=== PATIENT | male | born 1955 | race Caucasian/White ===

== ENCOUNTER → 2020-03-18 10:16 | Outpatient (BNVA) | payer OTHER, SELFPAY | PROVIDERS: PCP Internal Medicine; Referring Provider Internal Medicine; Visit Provider Internal Medicine Cardiovascular Disease | DX: I47.1 Supraventricular tachycardia (principal) | CPT/HCPCS: 99213 ==

== ENCOUNTER 2020-08-14 05:55 | Outpatient (REF) | payer OTHER, SELFPAY ==
[2020-08-14 06:58] LABS: MANUAL DIFF FLAG NO
[2020-08-14 07:06] LABS: Basophils Percent Auto 0.5 % (0-2); Eosinophils Absolute Auto 0.1 X10*3/uL (0.0-0.4); Eosinophils Percent Auto 1.5 % (0-4); Hematocrit 47.8 % (42-52); Hemoglobin 15.5 g/dl (14.0-18.0); Imm Gran Abs Auto 0.01 X10*3/uL (0.00-0.03); Imm Gran Pct Auto 0.2 % (0.0-0.4); Lymphocytes Percent Auto 34.2 % (20-40); Mean Corpuscular HGB Conc 32.4 g/dl (31.0-36.0); Mean Corpuscular Hemoglobin 28.8 pg (27.0-33.0); Mean Corpuscular Volume 88.8 fL (80-98); Mean Platelet Volume 9.6 fL (9.4-12.4); Monocytes Absolute Auto 0.7 X10*3/uL (0.1-1.2); Monocytes Percent Auto 11.7 % (2-11); Neutrophils Absolute Auto 3.1 X10*3/uL (2.0-8.3); Neutrophils Percent Auto 51.9 % (45-73); Platelet Count 248 X10*3/uL (160-400); Red Blood Count 5.38 X10*6/uL (4.60-5.80); Red Cell Distribution Width 12.4 % (11.0-16.0); White Blood Count 5.9 X10*3/uL (4.8-10.8)
[2020-08-14 07:37] LABS: Alanine Aminotransferase 17 U/L (0-40); Albumin Level 4.5 g/dL (3.5-5.0); Alkaline Phosphatase 84 U/L (39-117); Anion Gap 12 (12-20); Aspartate Amino Transferase 22 U/L (5-37); Blood Urea Nitrogen 15 mg/dL (9-16); Calcium 9.3 mg/dL (8.4-10.2); Carbon Dioxide 29 mmol/L (22-29); Chloride 100 mmol/L (96-108); Cholesterol 159 mg/dL; Estimated Glomerular Filt Rate > 60; Glucose Fasting 102 mg/dL (60-99); HDL Cholesterol 43 mg/dL; LDL Cholesterol Calculated 102 mg/dl; Potassium 4.2 mmol/L (3.3-5.1); Sodium 137 mmol/L (135-145); Total Protein 7.1 g/dL (6.5-8.0); Triglycerides 71 mg/dL
[2020-08-14 08:01] LABS: Prostate Specific Antigen Scr 1.09 ng/mL (<0.05-4.0); Thyroid Stimulating Hormone 1.67 uIU/mL (0.32-4.0)
[2020-08-15 07:16] LABS: Herpes Simplex Type 2 IgG <0.90 index
== END 2020-08-14 05:56 | disposition home or self-care (01) ==
LOC: HO.LAB 05:55
PROVIDERS: PCP Internal Medicine; Visit Provider Internal Medicine
DX: Z00.00 Encounter for general adult medical examination without abnormal findings (principal); E11.9 Type 2 diabetes mellitus without complications; R35.1 Nocturia; E03.9 Hypothyroidism, unspecified; Z20.2 Contact with and (suspected) exposure to infections with a predominantly sexual mode of transmission
CPT/HCPCS: 36415; 80053; 80061; 84153; 84443; 85025; 86695; 86696

== ENCOUNTER 2020-12-27 09:05 | Outpatient (REF) | payer OTHER, SELFPAY ==
--- NOTE | ~2020-12-27 | XR_ITS ---
EXAMINATION: XR KNEE, RIGHT CLINICAL INFORMATION: Pain COMPARISON: None TECHNIQUE: Four views of the right knee. FINDINGS: Bones and soft tissues are normal. No fracture or joint effusion. Alignment is anatomic. Joint spaces are well maintained. No abnormal soft tissue calcification. XR/XR knee RT 4V IMPRESSION: Normal right knee.
== END 2020-12-27 09:06 | disposition home or self-care (01) ==
LOC: HO.XRAY 09:05
PROVIDERS: PCP Internal Medicine; Visit Provider Internal Medicine
DX: M25.561 Pain in right knee (principal)
CPT/HCPCS: 73564

== ENCOUNTER → 2021-01-01 08:49 | Outpatient (BNVA) | payer OTHER, SELFPAY | PROVIDERS: Visit Provider Orthopaedic Surgery | DX: S83.241A Other tear of medial meniscus, current injury, right knee, initial encounter (principal) | CPT/HCPCS: 99202 ==

== ENCOUNTER → 2021-01-08 13:55 | Outpatient (BNVA) | payer OTHER, SELFPAY | PROVIDERS: PCP Internal Medicine; Visit Provider Internal Medicine Cardiovascular Disease ==

== ENCOUNTER 2021-01-16 07:45 | Day surgery (SDC) | payer OTHER, SELFPAY ==
[2021-01-10 09:32] VITALS: BMI 25.7
--- NOTE | 2021-01-15 08:10 | P.CONAN_ITS ---
Documented by User: Mally Connolly 01/15/21 08:11 HPI - Anesthesia Eval Consult details Narrative: 65yo M for Right Knee Arthroscopy Cardiac cleared at low risk [facility] Active Problems Active Problems: All Active Problems (Updated 01/08/21 @ 14:13 by Chao Epps MD) SVT (supraventricular tachycardia) (Acute) Physical exam (Acute) Knee pain (Acute) Tear of medial meniscus of right knee (Acute) Preop cardiovascular exam (Acute) Hyperlipidemia (Acute) Past Medical History Medical History GERD (gastroesophageal reflux disease) Hyperlipidemia Patellofemoral pain syndrome Seasonal allergies SVT (supraventricular tachycardia) Family History Family History Father No problems noted. Mother No problems noted. 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 Meds Allergies Allergy/AdvReac Type Severity Reaction Status Date / Time No Known Allergies Allergy Verified 01/16/21 07:56 [No Known Allergies*] Home Medications Medication Instructions Recorded Confirmed Last Taken Type fluticasone propionate 50 INTRANASAL 03/12/20 12/27/20 Unknown History mcg/actuation nasal spray,suspension Exam Exam Date and Time: January 15, 2021 0810 Height,Weight and Vital Signs: Height 5 ft 10 in Weight 81.193 kg Assessment and Plan Assessment Anesthesia Assessment: Chart Reviewed Documented by User: Yakov Guzman MD 01/16/21 08:43 [facility] Past Medical History Medical History GERD (gastroesophageal reflux disease) Hyperlipidemia Patellofemoral pain syndrome Seasonal allergies SVT (supraventricular tachycardia) Family History Family History Father No problems noted. Mother No problems noted. 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 Meds Allergies Allergy/AdvReac Type Severity Reaction Status Date / Time No Known Allergies Allergy Verified 01/16/21 07:56 [No Known Allergies*] Home Medications Medication Instructions Recorded Confirmed Last Taken Type fluticasone propionate 50 INTRANASAL 03/12/20 12/27/20 Unknown History mcg/actuation nasal spray,suspension Exam Airway Mallampati Class: III TM Dist: >3cm Neck ROM: Full Loose/Missing/Broken Teeth: No Heart: RRR Assessment and Plan Assessment Anesthesia Assessment: Anesthesia Plan Discussed and Chart Reviewed Final Anesthetic Review Family History of Problems with Anesthesia: No History of Problems with Anesthesia: No NPO: Yes ASA Class: II Final Preanesthetic Review: No Changes in Pt Med Stat, Meds/Allgs Chart Reviewed, Consent Obtained/Reviewed and Anes Risks/Benef Reviewed Patient Risk: Intermediate Procedure Risk: Low Anesthetic Plan Anesthetic Plan: GA Disposition: Standard PACU
[2021-01-16] VITALS (7 sets, daily range): BP systolic 137–149; BP diastolic 76–87; PULSE 63–78; RESP 14–16; TEMP 36.1–36.4; O2SAT 96–99
--- NOTE | 2021-01-16 07:30 | MHC.SHP ---
Pre-Procedural Eval Section A Date of Service: 01/16/21 The patient is an INPATIENT: No Changes since office visit: No Cold of Flu in the past 2 weeks, No New Medical Problems, No Changes in Medication and No Patient answered all questions The History & Physical has been completed within 30 days and I have reviewed it.: Yes Section B Chief Complaint: right meniscus tear Allergies: Allergies Allergy/AdvReac Type Severity Reaction Status Date / Time No Known Allergies Allergy Verified 01/08/21 13:56 [No Known Allergies*] Plan I have reviewed the history and physical and performed a pertinent physical examination on my patient. No changes have occurred unless specified.
[2021-01-16] MEDS: Lactated Ringers 1,000 ML 100 ML IVCONT (08:33)
--- NOTE | 2021-01-16 10:02 | P.OP_ITS ---
Operative Note Operative Note Date of Service: 01/16/21 Narrative: ARTHROSCOPIC SURGERY NOTE SURGEON: Dr Fabricio Woody) Instrum CLINICAL NURSING MANAGER: Catina ORTIZ PREOP DIAGNOSIS: Medial meniscal tear right knee POSTOP DIAGNOSIS: Same with grade 3 injury medial femoral condyle right knee OPERATIVE PROCEDURE: Arthroscopic partial medial meniscectomy right knee CLINICAL NOTE: This gentleman is at ongoing problems with pain discomfort involving his right knee. he had failed non operative management. His investigations confirmed medial meniscal tear and therefore after explaining the risks benefits and alternatives and answering all his questions it was mutually agreed upon to carry out the following procedure MOTION: Full range of motion STABILITY: Cruciate and collateral ligaments intact OPERATIVE DETAILS PREPARATION: GA, STANDARD TECHNIQUE, tourniquet E to 300 mm of mercury for 12 minutes SURGICAL TIME-OUT: Patient identified; procedure confirmed; site confirmed. Medical and allergy history reviewed. No preoperative antibiotics. No DVT prophylaxis. All other items discussed and agreed upon. INCISIONS: Superolateral, inferolateral, inferomedial stab incisions SYNOVIUM: Normal SYNOVIAL FLUID: Clear MEDIAL COMPARTMENT: There was complex tearing of the posterior horn of the medial meniscus. This was resected using a combination of handheld cutters and power shaver to stable meniscus. The medial femoral condyle had an area of grade 3 injury with loose articular cartilage. This was debrided. The tibial articular surface had grade 2 wear. INTERCONDYLAR NOTCH: The ACL visualized palpated and intact. PCL palpated intact LATERAL COMPARTMENT: The lateral meniscus, tibial and femoral articular surfaces, and popliteus tendon all stable and intact. ANTERIOR COMPARTMENT: Medial and lateral gutters clear. Suprapatellar pouch clear. Grade 2 softening of the medial and lateral facet of the patella. Femoral sulcus was intact CLOSURE: 30 cc of 0.25% Marcaine with epinephrine injected in the knee. Steri- Strips and sterile dressing then applied. RECOMMENDATIONS: 1)Restore motion strength 2)Resume activities as tolerated 3)Discharge today with prescription for analgesic 4)Follow up in the office in 10-14 days
[2021-01-16] MEDS: Ketorolac Tromethamine 15 MG/ML VIAL IVPUSH (10:32)
[2021-01-16] MEDS: Acetaminophen 325 MG TABLET 650 MG PO (10:32)
[2021-01-16] MEDS: oxyCODONE HCl Immed Release 5 MG TABLET PO (10:33)
== END 2021-01-16 11:30 | disposition home or self-care (01) ==
PROVIDERS: PCP Internal Medicine; Visit Provider Orthopaedic Surgery
PROC: (CPT 29870; principal; 2021-01-16 09:30)
DX: S83.231A Complex tear of medial meniscus, current injury, right knee, initial encounter (principal); M22.2X1 Patellofemoral disorders, right knee; I47.1 Supraventricular tachycardia; J30.2 Other seasonal allergic rhinitis; X58.XXXA Exposure to other specified factors, initial encounter; Y93.9 Activity, unspecified; Y92.9 Unspecified place or not applicable; Y99.8 Other external cause status; Z79.51 Long term (current) use of inhaled steroids
CPT/HCPCS: 29881; J1100; J1885; J2250; J2405; J3010

== ENCOUNTER → 2021-01-28 08:19 | Outpatient (BNVA) | payer OTHER, SELFPAY | PROVIDERS: PCP Internal Medicine; Visit Provider Orthopaedic Surgery | DX: Z48.89 Encounter for other specified surgical aftercare (principal) | CPT/HCPCS: 99212 ==

== ENCOUNTER 2021-08-20 07:17 | Outpatient (REF) | payer MEDICARE, SELFPAY ==
[2021-08-20 07:38] LABS: MANUAL DIFF FLAG NO
[2021-08-20 08:18] LABS: Basophils Percent Auto 0.3 % (0-2); Eosinophils Absolute Auto 0.1 X10*3/uL (0.0-0.4); Eosinophils Percent Auto 1.8 % (0-4); Hemoglobin 15.8 g/dl (14.0-18.0); Imm Gran Abs Auto 0.01 X10*3/uL (0.00-0.03); Imm Gran Pct Auto 0.2 % (0.0-0.4); Lymphocytes Absolute Auto 2.2 X10*3/uL (1.2-4.9); Lymphocytes Percent Auto 36.5 % (20-40); Mean Corpuscular HGB Conc 32.9 g/dl (31.0-36.0); Mean Corpuscular Hemoglobin 29.4 pg (27.0-33.0); Mean Corpuscular Volume 89.4 fL (80.0-98.0); Mean Platelet Volume 9.7 fL (9.4-12.4); Monocytes Absolute Auto 0.6 X10*3/uL (0.1-1.2); Monocytes Percent Auto 9.5 % (2-11); Neutrophils Absolute Auto 3.1 x10*3/uL (2.0-8.3); Neutrophils Percent Auto 51.7 % (45-73); Platelet Count 233 X10*3/uL (160-400); Red Blood Count 5.37 X10*6/uL (4.60-5.80); Red Cell Distribution Width 12.5 % (11.0-16.0)
[2021-08-20 09:07] LABS: Prostate Specific Antigen Scr 0.86 ng/mL (<0.05-4.0); Thyroid Stimulating Hormone 1.91 uIU/mL (0.32-4.0)
[2021-08-20 09:11] LABS: Alanine Aminotransferase 16 U/L (0-40); Albumin Level 4.6 g/dL (3.5-5.0); Alkaline Phosphatase 75 U/L (39-117); Anion Gap 12 (12-20); Aspartate Amino Transferase 21 U/L (5-37); Bilirubin Total 0.8 mg/dL (0.0-1.0); Blood Urea Nitrogen 18 mg/dL (9-16); Calcium 9.6 mg/dL (8.4-10.2); Carbon Dioxide 28 mmol/L (22-29); Chloride 103 mmol/L (96-108); Cholesterol 153 mg/dL; Estimated Glomerular Filt Rate > 60; Glucose Fasting 106 mg/dL (60-99); HDL Cholesterol 42 mg/dL; LDL Cholesterol Calculated 97 mg/dl; Potassium 4.3 mmol/L (3.3-5.1); Sodium 139 mmol/L (135-145); Total Protein 7.3 g/dL (6.5-8.0); Triglycerides 72 mg/dL
== END 2021-08-20 07:18 | disposition home or self-care (01) ==
LOC: HO.LAB 07:17
PROVIDERS: PCP Internal Medicine; Visit Provider Internal Medicine
DX: Z00.00 Encounter for general adult medical examination without abnormal findings (principal); Z13.0 Encounter for screening for diseases of the blood and blood-forming organs and certain disorders involving the immune mechanism; Z12.5 Encounter for screening for malignant neoplasm of prostate
CPT/HCPCS: 36415; 80053; 80061; 84153; 84443; 85025

== ENCOUNTER → 2021-09-15 14:41 | Outpatient (BNVA) | payer MEDICARE, SELFPAY | PROVIDERS: PCP Internal Medicine; Referring Provider Internal Medicine; Visit Provider Surgery | DX: R22.1 Localized swelling, mass and lump, neck (principal) | CPT/HCPCS: 99202 ==

== ENCOUNTER → 2022-01-05 13:28 | Outpatient (BNVA) | payer MEDICARE, SELFPAY | PROVIDERS: PCP Internal Medicine; Referring Provider Internal Medicine; Visit Provider Internal Medicine Cardiovascular Disease | DX: I10 Essential (primary) hypertension (principal); Z86.79 Personal history of other diseases of the circulatory system | CPT/HCPCS: 93005; 99212 ==

== ENCOUNTER → 2022-04-15 15:44 | Outpatient (BNVA) | payer MEDICARE, SELFPAY | PROVIDERS: PCP Internal Medicine; Referring Provider Internal Medicine; Visit Provider Internal Medicine Cardiovascular Disease | DX: I47.1 Supraventricular tachycardia (principal); I10 Essential (primary) hypertension; E78.5 Hyperlipidemia, unspecified; Z98.890 Other specified postprocedural states | CPT/HCPCS: 99212 ==

== ENCOUNTER 2022-08-20 09:35 | Outpatient (REF) | payer MEDICARE, SELFPAY ==
[2022-08-20 09:50] LABS: MANUAL DIFF FLAG NO
[2022-08-20 09:58] LABS: Basophils Percent Auto 0.7 % (0-2); Eosinophils Absolute Auto 0.1 X10*3/uL (0.0-0.4); Eosinophils Percent Auto 1.5 % (0-4); Hemoglobin 15.7 g/dl (14.0-18.0); Imm Gran Abs Auto 0.02 X10*3/uL (0.00-0.03); Imm Gran Pct Auto 0.3 % (0.0-0.4); Lymphocytes Absolute Auto 2.2 X10*3/uL (1.2-4.9); Lymphocytes Percent Auto 37.4 % (20-40); Mean Corpuscular HGB Conc 33.4 g/dl (31.0-36.0); Mean Corpuscular Hemoglobin 30.4 pg (27.0-33.0); Mean Corpuscular Volume 90.9 fL (80.0-98.0); Mean Platelet Volume 9.4 fL (9.4-12.4); Monocytes Absolute Auto 0.6 X10*3/uL (0.1-1.2); Monocytes Percent Auto 10.3 % (2-11); Neutrophils Absolute Auto 2.9 x10*3/uL (2.0-8.3); Neutrophils Percent Auto 49.8 % (45-73); Platelet Count 227 X10*3/uL (160-400); Red Blood Count 5.17 X10*6/uL (4.60-5.80); Red Cell Distribution Width 12.3 % (11.0-16.0); White Blood Count 5.8 X10*3/uL (4.8-10.8)
[2022-08-20 10:50] LABS: Alanine Aminotransferase 20 U/L (0-40); Albumin Level 4.6 g/dL (3.5-5.0); Alkaline Phosphatase 68 U/L (39-117); Anion Gap 12 (12-20); Aspartate Amino Transferase 24 U/L (5-37); Blood Urea Nitrogen 14 mg/dL (9-16); Carbon Dioxide 29 mmol/L (22-29); Chloride 102 mmol/L (96-108); Cholesterol 159 mg/dL; Estimated Glomerular Filt Rate > 60; Glucose Fasting 101 mg/dL (60-99); HDL Cholesterol 37 mg/dL; LDL Cholesterol Calculated 100 mg/dl; Potassium 4.4 mmol/L (3.3-5.1); Prostate Specific Antigen Scr 0.91 ng/mL (<0.05-4.0); Sodium 139 mmol/L (135-145); Total Protein 7.1 g/dL (6.5-8.0); Triglycerides 112 mg/dL
== END 2022-08-20 09:36 | disposition home or self-care (01) ==
LOC: HO.LAB 09:35
PROVIDERS: PCP Internal Medicine; Visit Provider Internal Medicine
DX: Z00.00 Encounter for general adult medical examination without abnormal findings (principal); Z12.5 Encounter for screening for malignant neoplasm of prostate; N28.9 Disorder of kidney and ureter, unspecified; D64.9 Anemia, unspecified; E78.5 Hyperlipidemia, unspecified
CPT/HCPCS: 36415; 80053; 80061; 84153; 85025

== ENCOUNTER 2023-04-14 14:45 | Outpatient (AMB) | payer MEDICARE, SELFPAY ==
--- NOTE | 2023-04-14 15:06 | MHC.OFFVIS ---
Intake Vital Signs 04/14/23 15:07 Height 5 ft 10 in Weight 180 lb 12.465 oz BMI 25.9 BP 124/80 Blood Pressure Location Lt brachial Position Sitting Pulse 61 Intake Visit Reasons: 1 year fu Intake Note: 1 year follow-up with ekg c/o palpitations at times Manager Copy Required: No Allergies No Known Allergies [No Known Allergies*] Allergy (Verified 08/20/22 08:53) Medication List - Last Reconciled 04/14/23 by Chao Epps MD atorvastatin 20 mg PO DAILY betamethasone, augmented 0.05 % topical carvedilol 3.125 mg PO BID 90 days ibuprofen 400 mg PO Q6H PRN valacyclovir 500 mg PO DAILY HPI HPI Comments History of Present Illness Details Pleasant 67 year gentleman who has history of hyperlipidemia and SVT status post ablation. He returns for follow-up after 1 year. He said he had some episodes of palpitations off and on over the last month. These lasted for short time. He was taking simvastatin which was increased to 40 mg previously and his LDL cholesterol was noted to be 100. He said he called our office and was started on atorvastatin 40 mg daily but he could not tolerate it any cut the dose to 20 mg due to muscle aches. He has been taking that regularly. [facility] Medical History (Updated 01/05/22 @ 14:09 by Chao Epps MD) Subcutaneous mass of neck Hyperlipidemia Seasonal allergies Patellofemoral pain syndrome GERD (gastroesophageal reflux disease) SVT (supraventricular tachycardia) Surgical History Hx of colonoscopy Hx of right knee surgery S/P ablation operation for arrhythmia Family History Father No problems noted. Mother No problems noted. 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 NECK: no carotid bruit, no jugular venous distention. SKIN: no suspicious lesions, warm and dry. HEART: no murmurs, regular rate and rhythm. LUNGS: clear to auscultation bilaterally. ABDOMEN: soft, nontender. EXTREMITIES: no edema. PERIPHERAL PULSES: equal. NEUROLOGIC: No gross deficits, AAO X 3 Office Procedures EKG Details: Sinus rhythm 61 beats per minute, normal axis, normal ECG, QTC 402 milliseconds. [id number], Complete Assessment & Plan Assessment & Plan (1) SVT (supraventricular tachycardia): Code(s): I47.1 - Supraventricular tachycardia (2) Essential hypertension: Code(s): I10 - Essential (primary) hypertension (3) Hyperlipidemia: Code(s): E78.5 - Hyperlipidemia, unspecified Plan Pleasant 67-year-old gentleman here for follow-up. Blood pressure control is good. Continue carvedilol 3.125 mg twice a day. He is on atorvastatin 20 mg once a day. We will check fasting lipid panel. He is experiencing some palpitations over the last month. I have advised him to monitor for now. Depending on the frequency of palpitations we will consider putting a monitor on him in the future. Thank you for allowing me to participate in the care of your patient. Please feel free to contact me if you have any questions. Orders: Orders Lipid Panel Today E78.5 - Hyperlipidemia, unspecified Medications: New atorvastatin 20 mg PO DAILY 90 tabs 3RF Coding Level of Care Code Est Pt Level 4 (52044) Diagnoses SVT (supraventricular tachycardia) I47.1 Essential hypertension I10 Hyperlipidemia E78.5 CPT Codes EKG - CPT: 73841-[id number], Complete ([id number])
[2023-04-14 15:07] VITALS: BP 124/80; PULSE 61; BMI 25.9
== END 2023-04-14 15:38 | disposition home or self-care (01) ==
PROVIDERS: PCP Internal Medicine; Visit Provider Internal Medicine Cardiovascular Disease
DX: I47.1 Supraventricular tachycardia (principal); I10 Essential (primary) hypertension; E78.5 Hyperlipidemia, unspecified
CPT/HCPCS: 93010; 99214

== ENCOUNTER → 2023-04-14 14:45 | Outpatient (BNVA) | payer MEDICARE, SELFPAY | PROVIDERS: PCP Internal Medicine; Visit Provider Internal Medicine Cardiovascular Disease | DX: I47.10 Supraventricular tachycardia, unspecified (principal); I10 Essential (primary) hypertension; E78.5 Hyperlipidemia, unspecified; Z79.899 Other long term (current) drug therapy | CPT/HCPCS: 93005; 99212 ==

== ENCOUNTER 2023-04-15 08:38 | Outpatient (REF) | payer BC, SELFPAY ==
[2023-04-15 09:32] LABS: Cholesterol 159 mg/dL (<200); HDL Cholesterol 42 mg/dL (>40); LDL Cholesterol Calculated 98 mg/dL (<100); Triglycerides 96 mg/dL (<150)
== END 2023-04-15 08:39 | disposition home or self-care (01) ==
LOC: HO.LAB 08:38
PROVIDERS: PCP Internal Medicine; Visit Provider Internal Medicine Cardiovascular Disease
DX: E78.5 Hyperlipidemia, unspecified (principal)
CPT/HCPCS: 36415; 80061

== ENCOUNTER 2023-08-25 08:45 | Outpatient (AMB) | payer BC, SELFPAY ==
[2023-08-25 08:47] VITALS: BP 124/70; PULSE 62; O2SAT 94; BMI 26.4
--- NOTE | 2023-08-25 08:47 | A.OFFPC_ITS ---
Vital Signs 08/25/23 08:47 Height 5 ft 10 in Weight 184 lb BMI 26.4 BP 124/70 Blood Pressure Location Lt brachial Position Sitting Pulse 62 Pulse Source Pulse Oximeter Pulse Oximetry (%) 94 Oxygen Delivery Method Room Air Intake Visit Reasons: Annual Exam Market Investigator Required: No Keno Clerk: Not Required per policy Accompanied by: Self / Same As Patient Allergies No Known Allergies [No Known Allergies*] Allergy (Verified 08/25/23 08:47) Medication List - Last Reconciled 08/25/23 by Delon Hart MD atorvastatin 20 mg PO DAILY betamethasone, augmented 0.05 % topical carvedilol 3.125 mg PO BID 90 days ibuprofen 400 mg PO Q6H PRN valacyclovir 500 mg PO DAILY Tobacco use date assessed: 08/25/23 Fall risk assessment: No Falls in past year Last assessed Fall Risk: 08/25/23 Dental Screening Dental Screen Date: 08/25/23 Did you have a dental visit in the last 12 months?: Yes Did you have a dental problem in the last 6 months where you did not have access to dental care?: No Was dental information given to patient?: Patient has dentist HPI Annual Exam HPI Details Hyperlip and htn; stble PFSH Medical History (Updated 01/05/22 @ 14:09 by Chao Epps MD) Subcutaneous mass of neck Hyperlipidemia Seasonal allergies Patellofemoral pain syndrome GERD (gastroesophageal reflux disease) SVT (supraventricular tachycardia) Surgical History Hx of right knee surgery Hx of colonoscopy S/P ablation operation for arrhythmia Family History Father No problems noted. Mother No problems noted. 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 1. Little interest or pleasure in doing things: not at all 2. Feeling down, depressed, or hopeless: not at all 3. Trouble falling or staying asleep, or sleeping too much: not at all 4. Feeling tired or having little energy: not at all 5. Poor appetite or overeating: not at all 6. Feeling bad about yourself - or that you are a failure or have let yourself or your family down: not at all 7. Trouble concentrating on things, such as reading the newspaper or watching television: not at all 8. Moving or speaking so slowly that other people could have noticed. Or the opposite - being so fidgety or restless that you have been moving around a lot more than usual: not at all 9. Thoughts that you would be better off or of hurting yourself in some way: not at all Total score: 0 Depression Screening Interpretation: Negative Depression Screening Done: Yes 64822 - PHQ-9 Billing: Yes Source: Developed by Drs. He Qureshi, Ilda Segovia, Ned Ovalle and colleagues, with an educational rei from [employer]. Thrive Questionnaire Date Thrive assessed: 08/25/23 I am a: Patient What is your living situation today?: I have a steady place to live Within the past 12 months, did the food you bought not last and you didn't have the money to get more?: Never true Within the past 12 months, did you worry whether your food would run out before you got money to buy more?: Never true Do you have trouble paying for medicines?: No Do you have trouble getting transportation to medical appointments?: No Do you have trouble paying your heating and electricity bill?: No Do you have trouble taking care of your child, family member or friend?: No Do you have trouble with day-to-day activities such as bathing, preparing meals, shopping, managing finances, etc.?: No Are you currently unemployed and looking for a job?: No Are you interested in more education?: No Please select the resources that you would like help with: None THRIVE Score: 0 AUDIT C Alcohol Use Questionnaire (AUDIT-C) 1. How often do you have a drink containing alcohol?: Never Total Score: 0 Score Reviewed/Action Taken: Yes GONZALES-7 AMB Questionnaire GONZALES-7 Date GONZALES - 7 assessed: 08/25/23 Feeling nervous, anxious, or on edge: 0 = Not at all Not being able to stop or control worryin = Not at all Worrying too much about different things: 0 = Not at all Trouble relaxin = Not at all Being so restless that it is hard to sit still: 0 = Not at all Becoming easily annoyed or irritable: 0 = Not at all Feeling afraid as if something awful might happen: 0 = Not at all Total GONZALES-7 score (0-4 normal; 5-9 mild; 10-14 moderate; 15-21 severe): 0 Source: Developed by Drs. He Qureshi, Ilda Segovia, Ned Ovalle and colleagues, with an educational rei from [employer]. GONZALES-7 Assessment Billing GONZALES-7 Assessment Tool: GONZALES-7 Assessment 09455 Review of Systems Const Denies chills, Denies fatigue, Denies headache(s) and Denies weight loss Eyes Denies change in vision, Denies diplopia and Denies eye pain ENT Reports Normal hearing present, Denies vertigo, Denies dizziness, Denies headache(s) and Denies nasal discharge Card Denies chest pain, Denies rapid heart rate and Denies dyspnea on exertion Resp Denies chest congestion, Denies cough, Denies pain with cough and Denies dyspnea on exertion GI Denies abdominal pain, Denies hematochezia and Denies change in bowel habits Musc Denies myalgias, Denies arthralgias and Denies joint swelling Skin/Breast Denies lesions and Denies unusual bruising Neuro Reports Normal hearing present, Denies vertigo, Denies dizziness, Denies headache(s) and Denies focal weakness Endo Denies fatigue Physical exam (Primary Care) Vital Signs: Last Vital Signs Pulse 62 08/25/23 08:47 BP 124/70 08/25/23 08:47 Pulse Ox 94 08/25/23 08:47 Oxygen Delivery Method Room Air 08/25/23 08:47 BMI result Body Mass Index 26.4 Tobacco/Smoking Status: Tobacco use Status Tobacco use date assessed 08/25/23 08/25/23 08:49 Patient Tobacco Use Status Never used Tobacco 08/25/23 08:49 e-Cigarette/Vaping Use Never Used 03/13/24 08:49 PHQ-9: PHQ-9 Score PHQ-9: Total score 0 08/25/23 09:00 Depression Screening Interpretation: Negative Thrive Assessment: Date of Thrive Assessment Date Thrive assessed 08/25/23 08/25/23 08:49 Const General: cooperative, comfortable, no acute distress and alert Neck Neck: Yes no lymphadenopathy Thyroid: Thyroid normal Resp Effort & Inspection: normal respiratory effort Auscultation: clear to auscultation bilaterally Percussion: percussion normal Cardio Jugular venous distension: no JVD Palpation: normal PMI Rate: regular rate Rhythm: regular rhythm Heart sounds: S1 normal heart sound present and S2 normal heart sound present GI Inspection: Yes normal to inspection Palpation (GI): No hepatosplenomegaly present Skin General skin exam: no rashes or lesions noted Neuro Cranial nerves: Yes Normal hearing present Extrem General: Yes no clubbing, cyanosis or edema Assessment and Plan Assessment & Plan (1) Physical exam: Code(s): Z00.00 - Encounter for general adult medical examination without abnormal findings Plan: do labs (2) Hyperlipidemia: Code(s): E78.5 - Hyperlipidemia, unspecified Plan: stable; same rx (3) Essential hypertension: Code(s): I10 - Essential (primary) hypertension Plan: stable; same rx Orders: Orders Complete Blood Count Auto Diff Today D64.9 - Anemia, unspecified Comprehensive [place]. Panel Fast Today N28.9 - Disorder of kidney and ureter, unspecified Prostate Specific Antigen Scr Today Z00.00 - Encounter for general adult medical examination without abnormal findings Lipid Panel Today E78.5 - Hyperlipidemia, unspecified Thyroid Stimulating Hormone Today E03.9 - Hypothyroidism, unspecified Hemoglobin A1c Today R73.9 - Hyperglycemia, unspecified Coding Level of Care Code Est Pt Prev Care >65y(71872) Diagnoses Physical exam Z00.00 Hyperlipidemia E78.5 Essential hypertension I10 Additional Codes GONZALES-7 Assessment Billing - GONZALES-7 Assessment Tool: GONZALES-7 Assessment 29711 ([id number])
== END 2023-08-25 09:35 | disposition home or self-care (01) ==
PROVIDERS: Visit Provider Internal Medicine
DX: Z00.00 Encounter for general adult medical examination without abnormal findings (principal); E78.5 Hyperlipidemia, unspecified; I10 Essential (primary) hypertension
CPT/HCPCS: 99397

== ENCOUNTER 2023-08-25 09:40 | Outpatient (REF) | payer BC, SELFPAY ==
[2023-08-25 10:03] LABS: MANUAL DIFF FLAG NO
[2023-08-25 10:18] LABS: Basophils Absolute Auto 0.1 X10*3/uL (0.0-0.2); Basophils Percent Auto 0.8 % (0-2); Eosinophils Absolute Auto 0.1 X10*3/uL (0.0-0.4); Eosinophils Percent Auto 1.6 % (0-4); Hematocrit 47.5 % (42.0-52.0); Hemoglobin 15.8 g/dl (14.0-18.0); Imm Gran Abs Auto 0.02 X10*3/uL (0.00-0.03); Imm Gran Pct Auto 0.3 % (0.0-0.4); Lymphocytes Absolute Auto 2.1 X10*3/uL (1.2-4.9); Mean Corpuscular HGB Conc 33.3 g/dl (31.0-36.0); Mean Corpuscular Volume 90.1 fL (80.0-98.0); Monocytes Absolute Auto 0.6 X10*3/uL (0.1-1.2); Monocytes Percent Auto 9.5 % (2-11); Neutrophils Absolute Auto 3.5 x10*3/uL (2.0-8.3); Neutrophils Percent Auto 54.8 % (45-73); Platelet Count 224 X10*3/uL (160-400); Red Blood Count 5.27 X10*6/uL (4.60-5.80); Red Cell Distribution Width 12.3 % (11.0-16.0); White Blood Count 6.3 X10*3/uL (4.8-10.8)
[2023-08-25 11:01] LABS: Prostate Specific Antigen Scr 0.96 ng/mL (<0.05-4.0)
[2023-08-25 11:10] LABS: Thyroid Stimulating Hormone 1.57 uIU/mL (0.32-4.0)
[2023-08-25 11:12] LABS: Alanine Aminotransferase 27 U/L (0-40); Albumin Level 4.6 g/dL (3.5-5.0); Alkaline Phosphatase 78 U/L (39-117); Anion Gap 13 (12-20); Aspartate Amino Transferase 26 U/L (5-37); Bilirubin Total 0.9 mg/dL (0.0-1.0); Blood Urea Nitrogen 13 mg/dL (9-16); Calcium 9.6 mg/dL (8.4-10.2); Carbon Dioxide 29 mmol/L (22-29); Chloride 102 mmol/L (96-108); Cholesterol 162 mg/dL (<200); Estimated Glomerular Filt Rate > 60; Glucose Fasting 107 mg/dL (60-99); HDL Cholesterol 40 mg/dL (>40); LDL Cholesterol Calculated 103 mg/dL (<100); Potassium 4.5 mmol/L (3.3-5.1); Sodium 139 mmol/L (135-145); Total Protein 7.7 g/dL (6.5-8.0); Triglycerides 97 mg/dL (<150)
[2023-08-25 15:21] LABS: Estimated Average Glucose 120 mg/dL; Hemoglobin A1c % 5.8 % (<6.0)
== END 2023-08-25 09:41 | disposition home or self-care (01) ==
LOC: HO.LAB 09:40
PROVIDERS: PCP Internal Medicine; Visit Provider Internal Medicine
DX: Z00.00 Encounter for general adult medical examination without abnormal findings (principal); Z12.5 Encounter for screening for malignant neoplasm of prostate; E78.5 Hyperlipidemia, unspecified; R73.9 Hyperglycemia, unspecified; D64.9 Anemia, unspecified; N28.9 Disorder of kidney and ureter, unspecified; E03.9 Hypothyroidism, unspecified
CPT/HCPCS: 36415; 80053; 80061; 83036; 84153; 84443; 85025

== ENCOUNTER 2024-04-19 08:47 | Outpatient (AMB) | payer MEDICARE, SELFPAY ==
[2024-04-19 09:09] VITALS: BP 132/78; PULSE 58; BMI 26.9
--- NOTE | 2024-04-19 09:09 | MHC.OFFVIS ---
Vital Signs 04/19/24 09:09 Height 5 ft 10 in Weight 187 lb 6.287 oz BMI 26.9 BP 132/78 Blood Pressure Location Lt brachial Position Sitting Pulse 58 Pulse Source Monitor Intake Visit Reasons: 1 yr f/up Allergies No Known Allergies [No Known Allergies*] Allergy (Verified 08/25/23 08:47) Medication List - Last Reconciled 04/19/24 by Chao Epps MD atorvastatin 20 mg PO DAILY betamethasone, augmented 0.05 % topical bethanechol chloride 5 mg PO BEDTIME carvedilol 6.25 mg (2 x 3.125 mg) PO BID 90 days ezetimibe 10 mg PO DAILY ibuprofen 400 mg PO Q6H PRN valacyclovir 500 mg PO DAILY HPI Comments Details: Pleasant 68 year gentleman who has history of hyperlipidemia and SVT status post ablation. He returns for follow-up after 1 year. He said he had some episodes of palpitations off and on over the last month. These lasted for short time. He was taking simvastatin which was increased to 40 mg previously and his LDL cholesterol was noted to be 100. He said he called our office and was started on atorvastatin 40 mg daily but he could not tolerate it any cut the dose to 20 mg due to muscle aches. He has been taking that regularly. 04/19/2024: He is here for follow-up. He has been experiencing palpitations every 2 weeks lasting for hours. He is saying that they are not as severe as SVT episodes but he feels his heart racing. He was taking carvedilol 3.125 mg twice a day. He also is prediabetic. He is taking atorvastatin 20 mg in his last LDL is 103. [facility] Medical History (Updated 04/19/24 @ 09:54 by Julio Us RN) Subcutaneous mass of neck Hyperlipidemia Seasonal allergies Patellofemoral pain syndrome GERD (gastroesophageal reflux disease) SVT (supraventricular tachycardia) Surgical History Hx of right knee surgery Hx of colonoscopy S/P ablation operation for arrhythmia Family History Father No problems noted. Mother No problems noted. 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 Cognitive needs: No Hearing needs: No Vision needs: Yes (glasses) Review of Systems Const Denies weakness ENT Denies dizziness Card Denies chest pain, Denies chest pain with activity, Denies syncope, Denies rapid heart rate, Denies pedal edema, Denies edema, Denies leg edema, Denies lightheadedness, Denies palpitations, Denies dyspnea, Denies dyspnea on exertion and Denies orthopnea Resp Denies cough, Denies dyspnea and Denies dyspnea on exertion GI Denies hematochezia and Denies change in stool character Musc Denies abnormal gait, Denies muscle cramps, Denies muscle weakness, Denies numbness, Denies radiating pain into limb and Denies tingling Neuro Denies abnormal gait, Denies dizziness, Denies syncope, Denies numbness, Denies tingling and Denies weakness Endo Denies palpitations Physical Exam Vital Signs: Last Vital Signs Pulse 58 04/19/24 09:09 BP 132/78 04/19/24 09:09 BMI result Body Mass Index 26.9 GENERAL APPEARANCE: in no acute distress, pleasant. NECK: no carotid bruit, no jugular venous distention. SKIN: no suspicious lesions, warm and dry. HEART: no murmurs, regular rate and rhythm. LUNGS: clear to auscultation bilaterally. ABDOMEN: soft, nontender. EXTREMITIES: no edema. PERIPHERAL PULSES: equal. NEUROLOGIC: No gross deficits, AAO X 3 Office Procedures EKG Details: Sinus bradycardia 58 beats per minute, rightward axis, QTC 388 milliseconds. [id number], Complete Assessment & Plan Assessment & Plan (1) Palpitations: Code(s): R00.2 - Palpitations Category: Medical (2) Essential hypertension: Code(s): I10 - Essential (primary) hypertension Category: Medical (3) Hyperlipidemia: Code(s): E78.5 - Hyperlipidemia, unspecified Category: Medical Plan Pleasant 68 year gentleman who is here for follow-up. He has history of SVT for which she underwent ablation. He did well until recently when he started getting some palpitations. He is saying that every 2 weeks he gets an episode of palpitations lasting for few hours. We discussed about doing monitoring and have agreed to do a 30 day event monitor. Increasing carvedilol to 6.25 mg twice a day. Adding ezetimibe 10 mg daily on top of atorvastatin 20 mg daily. He has not tolerated 40 mg of atorvastatin before because of myalgias. He will get fasting lipid panel in 6-8 weeks. Follow-up in few months. Thank you for allowing me to participate in the care of your patient. Please feel free to contact me if you have any questions. Orders: Orders Lipid Panel Today E78.5 - Hyperlipidemia, unspecified ECG 30 day event monitor Today R00.2 - Palpitations Medications: New ezetimibe 10 mg PO DAILY 90 tabs 3RF carvedilol must administer with a meal/food 6.25 mg PO BID 120 tabs 4RF Coding Level of Care Code Est Pt Level 4 (93278) Diagnoses Palpitations R00.2 Essential hypertension I10 Hyperlipidemia E78.5 CPT Codes EKG - CPT: 45440-[id number], Complete ([id number])
== END 2024-04-19 09:55 | disposition home or self-care (01) ==
LOC: HO.HCS 08:47
PROVIDERS: PCP Internal Medicine; Visit Provider Internal Medicine Cardiovascular Disease
DX: R00.2 Palpitations (principal); I10 Essential (primary) hypertension; E78.5 Hyperlipidemia, unspecified
CPT/HCPCS: 93010; 99214

== ENCOUNTER → 2024-04-19 08:47 | Outpatient (BNVA) | payer MEDICARE, SELFPAY | PROVIDERS: PCP Internal Medicine; Visit Provider Internal Medicine Cardiovascular Disease | DX: R00.2 Palpitations (principal); I10 Essential (primary) hypertension; E78.5 Hyperlipidemia, unspecified | CPT/HCPCS: 93005; 99212 ==

== ENCOUNTER → 2024-04-27 13:47 | Outpatient (REF) | payer MEDICARE, SELFPAY | LOC: HO.CARD 13:47 | PROVIDERS: PCP Internal Medicine; Visit Provider Internal Medicine Cardiovascular Disease | DX: R00.2 Palpitations (principal) | CPT/HCPCS: 93270 ==

== ENCOUNTER → 2024-04-27 13:50 | Outpatient (BNV) | payer MEDICARE, SELFPAY | PROVIDERS: PCP Internal Medicine; Visit Provider Internal Medicine | DX: I47.10 Supraventricular tachycardia, unspecified (principal) | CPT/HCPCS: 93272 ==

== ENCOUNTER 2024-06-28 08:28 | Outpatient (REF) | payer MEDICARE, SELFPAY ==
[2024-06-28 10:02] LABS: Cholesterol 144 mg/dL (<200); HDL Cholesterol 43 mg/dL (>40); LDL Cholesterol Calculated 83 mg/dL (<100); Triglycerides 94 mg/dL (<150)
== END 2024-06-28 08:29 | disposition home or self-care (01) ==
LOC: HO.LAB 08:28
PROVIDERS: PCP Internal Medicine; Visit Provider Internal Medicine Cardiovascular Disease
DX: E78.5 Hyperlipidemia, unspecified (principal)
CPT/HCPCS: 36415; 80061

== ENCOUNTER 2024-08-14 13:13 | Outpatient (AMB) | payer MEDICARE, SELFPAY ==
--- NOTE | 2024-08-14 13:23 | MHC.OFFVIS ---
Vital Signs 08/14/24 13:24 Height 5 ft 10 in Weight 190 lb 14.725 oz BMI 27.4 BP 130/66 Blood Pressure Location Lt brachial Position Sitting Pulse 67 Pulse Source Pulse Oximeter Intake Visit Reasons: 3 mth f/up/30day monitor/ r/s 07/26 Intake Note: 3 mnth f/up/ 30day monitor Telesales Agent Required: No Accompanied by: Self / Same As Patient Allergies No Known Allergies [No Known Allergies*] Allergy (Verified 08/25/23 08:47) Medication List - Last Reconciled 08/14/24 by Chao Epps MD atorvastatin 20 mg PO DAILY betamethasone, augmented 0.05 % topical carvedilol 6.25 mg PO BID ezetimibe 10 mg PO DAILY ibuprofen 400 mg PO Q6H PRN valacyclovir 500 mg PO DAILY HPI Comments Details: Pleasant 69-year-old gentleman who has history of hyperlipidemia and SVT status post ablation. He returns for follow-up after 1 year. He said he had some episodes of palpitations off and on over the last month. These lasted for short time. He was taking simvastatin which was increased to 40 mg previously and his LDL cholesterol was noted to be 100. He said he called our office and was started on atorvastatin 40 mg daily but he could not tolerate it any cut the dose to 20 mg due to muscle aches. He has been taking that regularly. 04/19/2024: He is here for follow-up. He has been experiencing palpitations every 2 weeks lasting for hours. He is saying that they are not as severe as SVT episodes but he feels his heart racing. He was taking carvedilol 3.125 mg twice a day. He also is prediabetic. He is taking atorvastatin 20 mg in his last LDL is 103. 08/14/2024: He is here for follow-up. Repeat LDL is 83 on ezetimibe and atorvastatin. He had a 30 day loop monitor with underlying sinus rhythm every heart rate of 70 rare supraventricular ectopy was noted. Patient's palpitations correlated with supraventricular ectopy. On higher dose of carvedilol 6.25 mg twice a day he has been doing well. He is denying any significant palpitations on follow-up. [facility] Medical History (Updated 04/19/24 @ 09:54 by Julio Us NP) Subcutaneous mass of neck Hyperlipidemia Seasonal allergies Patellofemoral pain syndrome GERD (gastroesophageal reflux disease) SVT (supraventricular tachycardia) Surgical History Hx of right knee surgery Hx of colonoscopy S/P ablation operation for arrhythmia Family History Father No problems noted. Mother No problems noted. 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 Cognitive needs: No Hearing needs: No Vision needs: Yes (glasses) Review of Systems Const Denies chills, Denies fatigue, Denies fever(s), Denies frequent falls, Denies weakness, Denies weight gain and Denies weight loss ENT Denies dizziness Card Denies chest pain, Denies leg edema, Denies lightheadedness, Denies palpitations, Denies dyspnea and Denies dyspnea on exertion Resp Denies cough, Denies dyspnea and Denies dyspnea on exertion GI Denies hematochezia Musc Denies abnormal gait, Denies muscle weakness, Denies numbness, Denies radiating pain into limb and Denies tingling Neuro Denies abnormal gait, Denies dizziness, Denies frequent falls, Denies numbness, Denies tingling and Denies weakness Endo Denies fatigue and Denies palpitations Physical Exam Vital Signs: Last Vital Signs Pulse 67 08/14/24 13:24 BP 130/66 08/14/24 13:24 BMI result Body Mass Index 27.4 GENERAL APPEARANCE: in no acute distress, pleasant. NECK: no carotid bruit, no jugular venous distention. SKIN: no suspicious lesions, warm and dry. HEART: no murmurs, regular rate and rhythm. LUNGS: clear to auscultation bilaterally. ABDOMEN: soft, nontender. EXTREMITIES: no edema. PERIPHERAL PULSES: equal. NEUROLOGIC: No gross deficits, AAO X 3 Assessment & Plan Assessment & Plan (1) Essential hypertension: Code(s): I10 - Essential (primary) hypertension Category: Medical (2) Palpitations: Code(s): R00.2 - Palpitations Category: Medical (3) Hyperlipidemia: Code(s): E78.5 - Hyperlipidemia, unspecified Category: Medical Plan Pleasant 69 year gentleman who is here for follow-up. He has history of SVT for which she underwent ablation in the past. He was complaining of some palpitations on follow-up and underwent 30 day event monitor which did not show any significant arrhythmia. His carvedilol dose was increased to 6.25 mg twice a day and since then symptoms have improved significantly. He continues to exercise and walks 4 miles a day without any exertional complaints. LDL cholesterol was 103 before and after adding ezetimibe 10 mg to atorvastatin 20 mg daily his LDL has decreased to 83. I think he is at target for his lipids. He has not tolerated higher dose of atorvastatin in the past. Follow-up with us in 1 year. Thank you for allowing me to participate in the care of your patient. Please feel free to contact me if you have any questions. Coding Level of Care Code Est Pt Level 4 (85800) Diagnoses Essential hypertension I10 Palpitations R00.2 Hyperlipidemia E78.5
[2024-08-14 13:24] VITALS: BP 130/66; PULSE 67; BMI 27.4
== END 2024-08-14 13:42 | disposition home or self-care (01) ==
PROVIDERS: PCP Internal Medicine; Visit Provider Internal Medicine Cardiovascular Disease
DX: I10 Essential (primary) hypertension (principal); R00.2 Palpitations; E78.5 Hyperlipidemia, unspecified
CPT/HCPCS: 99214

== ENCOUNTER → 2024-08-14 13:13 | Outpatient (BNVA) | payer MEDICARE, SELFPAY | PROVIDERS: PCP Internal Medicine; Visit Provider Internal Medicine Cardiovascular Disease | DX: I10 Essential (primary) hypertension (principal); R00.2 Palpitations; I47.10 Supraventricular tachycardia, unspecified; E78.5 Hyperlipidemia, unspecified | CPT/HCPCS: 99212 ==

== ENCOUNTER 2024-08-28 08:49 | Outpatient (REF) | payer BC, SELFPAY ==
[2024-08-28 09:41] LABS: MANUAL DIFF FLAG NO
[2024-08-28 10:23] LABS: Basophils Percent Auto 0.5 % (0-2); Eosinophils Absolute Auto 0.1 X10*3/uL (0.0-0.4); Eosinophils Percent Auto 1.7 % (0-4); Hematocrit 46.8 % (42.0-52.0); Hemoglobin 15.5 g/dl (14.0-18.0); Imm Gran Abs Auto 0.01 X10*3/uL (0.00-0.03); Imm Gran Pct Auto 0.2 % (0.0-0.4); Lymphocytes Absolute Auto 1.9 X10*3/uL (1.2-4.9); Lymphocytes Percent Auto 33.6 % (20-40); Mean Corpuscular HGB Conc 33.1 g/dl (31.0-36.0); Mean Corpuscular Hemoglobin 30.3 pg (27.0-33.0); Mean Corpuscular Volume 91.4 fL (80.0-98.0); Mean Platelet Volume 9.2 fL (9.4-12.4); Monocytes Absolute Auto 0.7 X10*3/uL (0.1-1.2); Monocytes Percent Auto 11.6 % (2-11); Neutrophils Percent Auto 52.4 % (45-73); Platelet Count 252 X10*3/uL (160-400); Red Blood Count 5.12 X10*6/uL (4.60-5.80); Red Cell Distribution Width 12.3 % (11.0-16.0); White Blood Count 5.8 X10*3/uL (4.8-10.8)
[2024-08-28 12:00] LABS: Alanine Aminotransferase 32 U/L (0-40); Albumin Level 4.6 g/dL (3.5-5.0); Alkaline Phosphatase 75 U/L (39-117); Anion Gap 14 (12-20); Aspartate Amino Transferase 28 U/L (5-37); Bilirubin Total 0.8 mg/dL (0.0-1.0); Blood Urea Nitrogen 10 mg/dL (9-16); Calcium 8.9 mg/dL (8.4-10.2); Carbon Dioxide 25 mmol/L (22-29); Chloride 107 mmol/L (96-108); Cholesterol 124 mg/dL (<200); Estimated Glomerular Filt Rate > 60; Glucose Fasting 96 mg/dL (60-99); HDL Cholesterol 38 mg/dL (>40); LDL Cholesterol Calculated 67 mg/dL (<100); Potassium 4.5 mmol/L (3.3-5.1); Sodium 141 mmol/L (135-145); Total Protein 7.8 g/dL (6.5-8.0); Triglycerides 99 mg/dL (<150)
[2024-08-28 12:22] LABS: Thyroid Stimulating Hormone 1.79 uIU/mL (0.32-4.0)
== END 2024-08-28 08:50 | disposition home or self-care (01) ==
LOC: HO.LAB 08:49
PROVIDERS: PCP Internal Medicine; Visit Provider Internal Medicine
DX: Z13.9 Encounter for screening, unspecified (principal); Z13.0 Encounter for screening for diseases of the blood and blood-forming organs and certain disorders involving the immune mechanism; Z13.29 Encounter for screening for other suspected endocrine disorder; Z13.220 Encounter for screening for lipoid disorders
CPT/HCPCS: 36415; 80053; 80061; 84443; 85025

== ENCOUNTER 2024-08-28 08:49 | Outpatient (AMB) | payer BC, SELFPAY ==
[2024-08-28 08:51] VITALS: BP 116/80; PULSE 58; O2SAT 98; BMI 27.4
--- NOTE | 2024-08-28 08:51 | A.OFFPC_ITS ---
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 Required: No Accompanied by: Self / Same As Patient Allergies No Known Allergies [No Known Allergies*] Allergy (Verified 08/28/24 08:51) Medication List - Last Reconciled 08/28/24 by Delon Hart MD atorvastatin 20 mg PO DAILY betamethasone, augmented 0.05 % topical carvedilol 6.25 mg PO BID ezetimibe 10 mg PO DAILY ibuprofen 400 mg PO Q6H PRN valacyclovir 500 mg PO DAILY Tobacco use date assessed: 08/28/24 Fall risk assessment: No Falls in past year Last assessed Fall Risk: 08/28/24 Dental Screening Dental Screen Date: 08/28/24 Did you have a dental visit in the last 12 months?: Yes Did you have a dental problem in the last 6 months where you did not have access to dental care?: No Was dental information given to patient?: Patient has dentist HPI Annual Exam HPI Details hyperlipidemia and SVT; sees cardiology; doing well; compliant [facility] Medical History (Updated 04/19/24 @ 09:54 by Julio Us NP) Subcutaneous mass of neck Hyperlipidemia Seasonal allergies Patellofemoral pain syndrome GERD (gastroesophageal reflux disease) SVT (supraventricular tachycardia) Surgical History Hx of right knee surgery Hx of colonoscopy S/P ablation operation for arrhythmia Family History Father No problems noted. Mother No problems noted. 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 1. Little interest or pleasure in doing things: not at all 2. Feeling down, depressed, or hopeless: not at all 3. Trouble falling or staying asleep, or sleeping too much: not at all 4. Feeling tired or having little energy: not at all 5. Poor appetite or overeating: not at all 6. Feeling bad about yourself - or that you are a failure or have let yourself or your family down: not at all 7. Trouble concentrating on things, such as reading the newspaper or watching television: not at all 8. Moving or speaking so slowly that other people could have noticed. Or the opposite - being so fidgety or restless that you have been moving around a lot more than usual: not at all 9. Thoughts that you would be better off or of hurting yourself in some way: not at all Total score: 0 Source: Developed by Drs. He Qureshi, Ilda Segovia, Ned Ovalle and colleagues, with an educational rei from [employer]. Thrive Questionnaire Date Thrive assessed: 08/28/24 I am a: Patient What is your living situation today?: I have a steady place to live Within the past 12 months, did the food you bought not last and you didn't have the money to get more?: Never true Within the past 12 months, did you worry whether your food would run out before you got money to buy more?: Never true Do you have trouble paying for medicines?: No Do you have trouble getting transportation to medical appointments?: No Do you have trouble paying your heating and electricity bill?: No Do you have trouble taking care of your child, family member or friend?: No Do you have trouble with day-to-day activities such as bathing, preparing meals, shopping, managing finances, etc.?: No Are you currently unemployed and looking for a job?: No Are you interested in more education?: No Please select the resources that you would like help with: None Currently or been in a relationship where the following occur: No concerns reported THRIVE Score: 0 AUDIT C Alcohol Use Questionnaire (AUDIT-C) 1. How often do you have a drink containing alcohol?: Monthly or less 2. How many drinks containing alcohol do you have on a typical day when you are drinking?: 1 or 2 3. How often do you have six or more drinks on one occasion?: Never Total Score: 1 GONZALES-7 AMB Questionnaire GONZALES-7 Date GONZALES - 7 assessed: 08/28/24 Feeling nervous, anxious, or on edge: 0 = Not at all Not being able to stop or control worryin = Not at all Worrying too much about different things: 0 = Not at all Trouble relaxin = Not at all Being so restless that it is hard to sit still: 0 = Not at all Becoming easily annoyed or irritable: 0 = Not at all Feeling afraid as if something awful might happen: 0 = Not at all Total GONZALES-7 score (0-4 normal; 5-9 mild; 10-14 moderate; 15-21 severe): 0 Source: Developed by Drs. He Qureshi, Ilda Segovia, Ned Ovalle and colleagues, with an educational rei from [employer]. Review of Systems Const Denies chills, Denies fatigue, Denies headache(s) and Denies weight loss Eyes Denies change in vision, Denies diplopia and Denies eye pain ENT Denies vertigo, Denies dizziness, Denies headache(s) and Denies nasal discharge Card Denies chest pain, Denies rapid heart rate and Denies dyspnea on exertion Resp Denies chest congestion, Denies cough, Denies pain with cough and Denies dyspnea on exertion GI Denies abdominal pain, Denies hematochezia and Denies change in bowel habits Musc Denies myalgias, Denies arthralgias and Denies joint swelling Skin/Breast Denies lesions and Denies unusual bruising Neuro Denies vertigo, Denies dizziness, Denies headache(s) and Denies focal weakness Endo Denies fatigue Physical exam (Primary Care) Vital Signs: Last Vital Signs Pulse 58 08/28/24 08:51 BP 116/80 08/28/24 08:51 Pulse Ox 98 08/28/24 08:51 Oxygen Delivery Method Room Air 08/28/24 08:51 BMI result Body Mass Index 27.4 Tobacco/Smoking Status: Tobacco use Status Tobacco use date assessed 08/28/24 08/28/24 08:56 Patient Tobacco Use Status Never used Tobacco 08/28/24 08:56 e-Cigarette/Vaping Use Never Used 08/28/24 08:56 PHQ-9: PHQ-9 Score PHQ-9: Total score 0 08/28/24 08:56 Thrive Assessment: Date of Thrive Assessment Date Thrive assessed 08/28/24 08/28/24 08:56 Currently or been in a relationship where the following occur: No concerns rep orted Const General: cooperative, healthy appearing and no acute distress Orientation/consciousness: oriented to person, oriented to place and oriented to time HENMT Head: Yes normal to inspection, Yes normocephalic and Yes atraumatic Mouth: Normal oral and palatal mucosa present and tongue normal Throat: Yes posterior oropharynx normal and Yes uvula midline Eyes General: appearance normal, both eyes and all related structures Neck Neck: Yes normal visual inspection, Yes full ROM and Yes no lymphadenopathy Thyroid: Thyroid normal Carotids: normal carotid upstroke Chest Chest palpation & inspection: normal inspection of the chest Resp Effort & Inspection: normal respiratory effort and able to speak in complete sentences Auscultation: clear to auscultation bilaterally Cardio Jugular venous distension: no JVD Palpation: normal PMI Rate: regular rate Rhythm: regular rhythm Heart sounds: S1 normal heart sound present and S2 normal heart sound present GI Inspection: Yes normal to inspection Palpation (GI): Soft to palpation and No hepatosplenomegaly present Auscultation: normal bowel sounds General: Yes no CVA tenderness Back/Spine/Pelvis Back: no CVA tenderness Skin General skin exam: no rashes or lesions noted Neuro General: oriented to person, oriented to place and oriented to time Extrem General: Yes normal to inspection and Yes full ROM Coding Level of Care Code Est Pt Prev Care >65y(26382) Diagnoses Essential hypertension I10 Physical exam Z00.00 SVT (supraventricular tachycardia) I47.1 Hyperlipidemia E78.5 Assessment & Plan Assessment & Plan (1) Essential hypertension: Code(s): I10 - Essential (primary) hypertension Category: Medical Plan: stable; same rx (2) Physical exam: Code(s): Z00.00 - Encounter for general adult medical examination without abnormal findings Category: Medical Plan: stable; do labs (3) SVT (supraventricular tachycardia): Code(s): I47.1 - Supraventricular tachycardia Category: Medical Plan: as per cardiology (4) Hyperlipidemia: Code(s): E78.5 - Hyperlipidemia, unspecified Category: Medical Plan: stable; same rx Orders: Orders Thyroid Stimulating Hormone Today Z13.29 - Encounter for screening for other suspected endocrine disorder Comprehensive [facility]. Panel Fast Today Z13.9 - Encounter for screening, unspecified Lipid Panel Today Z13.220 - Encounter for screening for lipoid disorders Complete Blood Count Auto Diff Today Z13.0 - Encounter for screening for diseases of the blood and blood-forming organs and certain disorders involving the immune mechanism
== END 2024-08-28 09:18 | disposition home or self-care (01) ==
LOC: HO.HMCH 08:50
PROVIDERS: PCP Internal Medicine; Visit Provider Internal Medicine
DX: I10 Essential (primary) hypertension (principal); Z00.00 Encounter for general adult medical examination without abnormal findings; I47.10 Supraventricular tachycardia, unspecified; E78.5 Hyperlipidemia, unspecified